=== PATIENT | male | born 1975 | race Caucasian/White ===

== ENCOUNTER 2018-05-13 14:32 | Emergency (ER) | payer OTHER ==
--- NOTE | 2018-05-13 15:18 | EDPHY ---
H & P Time Seen by Provider: 05/13/18 15:00 HPI/ROS: CHIEF COMPLAINT: Sharp left-sided chest pain HISTORY OF PRESENT ILLNESS: 42-year-old man presents today with symptoms this this morning she describes as sharp shooting pain on the left side of his chest with the tip of the scapula which last for couple minutes at a time and has been happening several times an hours since this morning. He says it feels"sore ", does not radiate, no associated jaw or neck symptoms, no cough or shortness of breath, no diaphoresis or radiation to arms. Patient is on metformin for"prediabetes"but does not smoke, no cocaine, no history of venous thromboembolism. REVIEW OF SYSTEMS: Eye: no change in vision ENT: no sore throat Cardiac: No palpitations or syncope Pulmonary: HPI Abdomen: no vomiting, diarrhea, abdominal pain Musculoskeletal: HPI, no leg swelling Skin: no rash Neuro: no headache Constitutional: no fever : no urinary symptoms A comprehensive 10 point review of systems is otherwise negative aside from elements mentioned in the history of present illness. PAST MEDICAL HISTORY: Includes bipolar 2, hypothyroid,"prediabetes on metformin " Family history: Father had coronary disease in his late 50s, no family history of venous thromboembolism. Social history: Former smoker, no drugs, no recent travel or immobilization. No recent surgery. General Appearance: Alert and conversant, cooperative. Eyes: No scleral icterus. ENT, Mouth: Normal mucous membranes. Respiratory: Normal respiratory effort, breath sounds equal, lungs are clear to auscultation. No splinting, no wheezing. Cardiovascular: Regular rate and rhythm. No murmur. Gastrointestinal: Abdomen is soft and non tender. Neurological: Alert, face symmetric, normal motor and sensory in extremities. Skin: Warm and dry, no rashes. Musculoskeletal: No peripheral edema. Legs equal, no calf tenderness. Psychiatric: Not agitated. Emergency Department course/MDM: Symptoms are very atypical, history would be low likelihood for acute coronary syndrome. Patient is perc negative for pulmonary embolism. Plan for EKG chest x-ray and troponin. More likely to be inflammatory such as pleurisy with recent upper respiratory infection. Labs discussed the patient. Smoking Status: Never smoked Constitutional: Initial Vital Signs Temperature (C) 36.9 C 05/13/18 14:41 Heart Rate 88 05/13/18 14:41 Respiratory Rate 18 05/13/18 14:41 Blood Pressure 169/116 H 05/13/18 14:41 O2 Sat (%) 95 05/13/18 14:41 O2 Delivery Mode Room Air Allergies/Adverse Reactions: Penicillins Allergy (Verified 05/13/18 14:39) Home Medications: Medication Instructions Recorded Adderall 10 MG (*) 05/13/18 Hydroxyzine HCl 05/13/18 Levothyroxine 05/13/18 Liothyronine Sodium 05/13/18 [place] Aspartate 05/13/18 Metformin HCl 05/13/18 Rexulti 05/13/18 VYVANSE 05/13/18 Medical Decision Making - Diagnostics EKG Interpretation: 12-lead EKG interpreted by me; official reading is in computer system. My interpretation is sinus rhythm rate 76 normal intervals and no ischemic changes. Imaging Results: Imaging Impressions Chest X-Ray 05/13/18 15:10 Impression: Enlarged either azygos node or vein without cardiomegaly or other evidence of elevated venous pressures. Imaging: I viewed and interpreted images myself Differential Diagnosis: Differential diagnosis considered for chest pain including but not limited to myocardial ischemia, aortic dissection, pericarditis, pulmonary embolus, chest wall pain, pleural inflammation and pulmonary infectious causes. - Data Points Laboratory Results: 05/13/18 15:48 POC Troponin I 0.00 ng/mL ng/mL (0.00-0.08) Point of Care Test Results: Chemistry 05/13/18 15:48 POC Troponin I 0.00 ng/mL ng/mL (0.00-0.08) Departure - Departure Disposition: Home, Routine, Self-Care Clinical Impression: Chest pain Qualifiers: Chest pain type: unspecified Qualified Code(s): R07.9 - Chest pain, unspecified Condition: Good Instructions: Chest Pain (ED), Pleurisy (ED) Additional Instructions: You had a normal EKG and chest x-ray, and a negative troponin test. Referrals: Asael Cotton MD [Medical Doctor] - 2-3 days, if not improved
--- NOTE | 2018-05-13 15:25 | CPEKG ---
Test Reason : OPEN Blood Pressure : / mmHG Vent. Rate : 076 BPM Atrial Rate : 076 BPM P-R Int : 186 ms QRS Dur : 098 ms QT Int : 386 ms P-R-T Axes : 055 -03 014 degrees QTc Int : 435 ms Sinus rhythm Confirmed by Memo Nath ([id number]) on 05/13/2018 3:24:44 PM Referred By: Confirmed By:Memo Nath
[2018-05-13 16:18] VITALS: BP 107/60
== END 2018-05-13 16:17 | disposition home or self-care (01) ==
DX: R07.9 Chest pain, unspecified (principal)
CPT/HCPCS: 84484-PO